=== PATIENT | male | born 1975 | race American Indian/Alaskan Native ===

== ENCOUNTER → 2021-02-19 | Day surgery (SDC) | payer OTHER ==
[~2021-02-19] VITALS: Ht 167.6 cm; Wt 88.5 kg
[~2021-02-19] MED LIST: ATROPINE SULF 0.4 MG/ML 1ML VIAL (J0461) IV STA; ATROPINE SULF 1MG/10ML SYRINGE (J0461) ONE; CALCIUM CHLORIDE 10% 1 GM/10 ML SYR As Ordered ONE; CALCIUM CHLORIDE 10% 1 GM/10 ML SYR IV STA; CALCIUM CHLORIDE 10% 1 GM/10 ML SYR ONE; DESMOPRESSIN ACETATE IV ONE; DEXTROSE 50% 50 ML SYRINGE As Ordered ONE; DEXTROSE 50% 50 ML SYRINGE IV STA; DILUENT IV ONE; EPINEPHrine 1MG/10ML SYRINGE 1.5IN ONE; ERYTHROMYCIN LACTOBIONATE INJ 250 MG in NS 250 ML IV ONE; LIDOCAINE 2% 100MG/5ML SDV (FOR ANES.) As Ordered ONE; MIDAZOLAM INJ 2MG/2ML VIAL (J2250 PER 1MG) As Ordered ONE; NOREPINEPHRINE 4 MG/4 ML AMP As Ordered ONE; NS 1,000 ML IV ONE; NS IV ONE; OCTREOTIDE ACETATE 1,200 MCG in NS 238.8 ML IV SCH; OCTREOTIDE ACETATE 100MCG/ML VIAL **IV ADMINISTRATION ONLY IV ONE; ONDANSETRON 4MG/2ML VIAL IV ONE; PANTOPRAZOLE 40MG VIAL (C9113 PER 1) IV ONE; PANTOPRAZOLE SODIUM 40 MG in D5W 50 ML IV SCH; PROTHROMBIN COMPLEX CONCEN IV ONE; ROCURONIUM BROMIDE 50 MG/5 ML VIAL As Ordered ONE; ROCURONIUM BROMIDE 50 MG/5 ML VIAL IV ONE; ROCURONIUM BROMIDE 50 MG/5 ML VIAL ONE; SODIUM BICARBONATE 150 MEQ in D5W 1,000 ML IV SCH; SODIUM BICARBONATE 8.4% INJ 50 ML SYRINGE As Ordered ONE; SODIUM BICARBONATE 8.4% INJ 50 ML SYRINGE IV STA; SODIUM BICARBONATE 8.4% INJ 50 ML SYRINGE ONE; THROMBIN SOLN 20,000 UNITS KIT As Ordered ONE; TRANEXAMIC ACID 100 MG/ML 10ML VIAL As Ordered ONE; VASOPRESSIN INJ 20 UNITS in NS 500 ML IV SCH; VASOPRESSIN INJ 20 UNITS/ML VIAL As Ordered ONE; VECURONIUM BROMIDE 10MG VIAL As Ordered ONE; ceFAZolin 2 GM/D5W 50 ML IV BAG (J0690 PER 500MG) As Ordered ONE; cefTRIAXone SOD 1GM VIAL (J0696 PER 250MG) As Ordered ONE; fentaNYL 100 MCG/2 ML INJECTION As Ordered ONE; propofoL 200 MG/20 ML VIAL As Ordered ONE
[2021-02-19 10:47] LABS: BASO % 0.3 % (0.0-1.0); EOS % 0.1 % (0.0-3.0); LYMPH # 0.9 10^3/uL (1.5-5.0); LYMPH % 9.1 % (24.0-44.0); MEAN CORPUSCULAR VOLUME 109.9 fl (80.0-96.0); MONO # 0.6 10^3/uL (0.0-0.8); MONO % 6.1 % (2.0-8.0); NEUTROPHILS # 8.4 10^3/uL (1.5-8.5); NEUTROPHILS % 83.1 % (36.0-66.0); RED BLOOD COUNT 1.91 10^6/uL (4.30-6.10); WHITE BLOOD COUNT 10.1 10^3/uL (4.0-10.0)
[2021-02-19 11:03] LABS: INR 3.14; PROTHROMBIN TIME 32.6 SECONDS (12.7-14.5)
[2021-02-19 11:09] LABS: HEMOGLOBIN 6.3 g/dl (13.5-17.5)
[2021-02-19 11:10] LABS: PLATELET COUNT, AUTOMATED 93 10^3/uL (150-450)
[2021-02-19 11:36] LABS: RSV AMPLIFICATION NEGATIVE (NEGATIVE)
[2021-02-19] MEDS: NOREPINEPHRINE BITARTRATE 8 MG in D5W 492 ML IV SCH ×3 (11:47→12:40)
[2021-02-19] MEDS: SODIUM BICARBONATE 8.4% INJ 50 ML SYRINGE IV PRN ×10 (11:50→12:37)
[2021-02-19 11:52] LABS: ALBUMIN 1.8 GM/DL (3.2-5.2); BILIRUBIN,DIRECT 0.8 MG/DL (0.0-0.2); BILIRUBIN,TOTAL 1.1 MG/DL (0.2-1.0); CALCIUM LEVEL 7.5 MG/DL (8.5-10.1); CREATININE FOR GFR 2.71 MG/DL (0.70-1.30); GLOMERULAR FILTRATION RATE 27.2 (>60); POTASSIUM SERUM 4.1 MEQ/L (3.5-5.1); TOTAL PROTEIN 4.3 GM/DL (6.4-8.2)
[2021-02-19 11:53] LABS: ETHYL ALCOHOL (ETHANOL) 0.301 % (0.000-0.010)
[2021-02-19 12:09] LABS: ABG HCO3 8.4 MEQ/L (22.0-26.0); ABG PARTIAL PRESSURE CO2 40.4 mmHg (35.0-45.0); ABG PARTIAL PRESSURE O2 165.9 mmHg (75.0-100.0); ABG STANDARD HCO3 7.6 MEQ/L (22.0-26.0); ABG TOTAL CO2 9.7 MEQ/L (22.0-29.0)
[2021-02-19 12:10] LABS: ABG pH (ARTERIAL) 6.938 UNITS (7.350-7.450)
[2021-02-19] MEDS: CALCIUM CHLORIDE 10% 1 GM/10 ML SYR IV PRN ×2 (12:17→12:35)
[2021-02-19] MEDS: MIDAZOLAM INJ 2MG/2ML VIAL (J2250 PER 1MG) IV PRN (12:23)
[2021-02-19 12:42] VITALS: BP 111/53
[2021-02-19 15:09] LABS: BASO % 0.2 % (0.0-1.0); EOS % 0.2 % (0.0-3.0); HEMATOCRIT 32.7 % (42.0-52.0); LYMPH # 0.9 10^3/uL (1.5-5.0); LYMPH % 15.1 % (24.0-44.0); MEAN CORPUSCULAR HEMOGLOBIN 29.3 pg (27.0-33.0); MEAN CORPUSCULAR HGB CONC 31.5 g/dl (32.0-36.5); MEAN CORPUSCULAR VOLUME 92.9 fl (80.0-96.0); MONO # 0.5 10^3/uL (0.0-0.8); MONO % 8.7 % (2.0-8.0); NEUTROPHILS # 4.4 10^3/uL (1.5-8.5); RED BLOOD COUNT 3.52 10^6/uL (4.30-6.10)
[2021-02-19 15:20] LABS: HEMOGLOBIN 10.3 g/dl (13.5-17.5); PLATELET COUNT, AUTOMATED 26 10^3/uL (150-450)
[2021-02-19 15:20] LABS: INR 2.36; PROTHROMBIN TIME 26.2 SECONDS (12.7-14.5)
[2021-02-19 15:22] LABS: PARTIAL THROMBOPLASTIN TIME 113.4 SECONDS (25.9-37.0)
[2021-02-19 15:23] LABS: CK-MB VALUE MASS 6.2 NG/ML (<3.6); MB/CK RELATIVE INDEX 1.88 (< OR =4)
[2021-02-19 15:26] LABS: FIBRINOGEN 89 MG/DL (268-480)
[2021-02-19 15:41] LABS: ALBUMIN 1.4 GM/DL (3.2-5.2); BILIRUBIN,TOTAL 0.5 MG/DL (0.2-1.0); CALCIUM LEVEL 12.1 MG/DL (8.5-10.1); CREATININE FOR GFR 1.75 MG/DL (0.70-1.30); D-DIMER QUANT > 4000 ng/ml (<500); GLOMERULAR FILTRATION RATE 45.1 (>60); MAGNESIUM LEVEL 1.9 MG/DL (1.8-2.4); POTASSIUM SERUM 4.9 MEQ/L (3.5-5.1); TOTAL PROTEIN 2.7 GM/DL (6.4-8.2)
[2021-02-19 16:06] LABS: PHOSPHORUS LEVEL 10.2 MG/DL (2.5-4.9)
== END | disposition home or self-care (01) ==
LOC: M ED 10:10 → EDBD 10:10 → M ED 12:50 → M SDC 16:02
PROVIDERS: ATTEND Surgery
DX: R57.1 Hypovolemic shock (principal); K92.2 Gastrointestinal hemorrhage, unspecified; J96.90 Respiratory failure, unspecified, unspecified whether with hypoxia or hypercapnia; K92.0 Hematemesis; F10.220 Alcohol dependence with intoxication, uncomplicated; I95.9 Hypotension, unspecified; R41.82 Altered mental status, unspecified
CPT/HCPCS: 36430; 36556; 36620; 43241; 43244; 71045; 74018; 80048; 80053; 80076; 82077; 82330; 82550; 82553; 82803; 82947; 83605; 83690; 83735; 84100; 84132; 84295; 84484; 85014; 85025; 85049; 85055; 85379; 85384; 85610; 85730; 86850; 86900; 86901; 86920; 86927; 87631; 93005; 93041; 94760; 96365; 96367; 96375; 96376; 99291; 99292; C9113; J0461; J0690; J0696; J1364; J2250; J2354; J2405; J2597; J3010; J7168; P9012; P9016; P9017; P9034; P9045